=== PATIENT | male | born 1980 | race Caucasian/White ===

== ENCOUNTER 2021-08-30 18:30 | Inpatient (IN) ==
[2021-08-31] MEDS ORDERED: ALBUTEROL/IPRATROPIUM 3 ML NEB RESP TX STA (00:26)
[2021-08-31] MEDS ORDERED: SODIUM CHLORIDE 0.9% 1,000 ML IV STA (00:26)
[2021-08-31] MEDS ORDERED: methylPREDNISolone SOD SUC 125 MG/2 ML VIAL IV STA (00:26)
[2021-08-31 00:58] LABS: Basophils # 0.1 10*3/uL (0.0-0.2); Basophils % 0.3 % (0.0-0.8); Eosinophils # 0.2 10*3/uL (0.0-0.87); Eosinophils % 1.3 % (0.00-10.9); Hematocrit 39.4 VOL% (42.0-52.0); Hemoglobin 12.5 GM/DL (14.0-18.0); Immature Granulocytes Absolute 0.16 #; Lymphocytes # 1.5 10*3/uL (1.4-4.0); Lymphocytes % 9.1 % (21.2-54.2); Mean Corpuscular HGB Conc 31.7 GM/DL (32-36); Mean Corpuscular Volume 92.9 FL (87-102); Mean Platelet Volume 10.5 FL (9.6-12.0); Monocytes # 1.3 10*3/uL (0.11-0.8); Monocytes % 7.5 % (1.7-12.7); Neutrophils % 80.8 % (38.7-73.9); Platelet Count 311 T/CUMM (130-400); Red Blood Count 4.24 MC/CUMM (3.8-5.5); Red Cell Distribution Width 14.9 % (9.3-17.3); White Blood Count 16.6 T/CUMM (4-12)
[2021-08-31 01:19] LABS: INR 0.9; PT Patient Result 10.2 SECS (10.5-12.0)
[2021-08-31] MEDS ORDERED: ACETAMINOPHEN 325 MG TABLET PO PRN (02:22)
[2021-08-31] MEDS ORDERED: DEXTROSE 10% 250 ML BAG IV PRN (02:22)
[2021-08-31] MEDS ORDERED: ONDANSETRON 4 MG/2 ML VIAL IV PRN (02:22)
[2021-08-31] MEDS ORDERED: GLUCAGON 1 MG VIAL IM PRN (02:22)
[2021-08-31] MEDS ORDERED: hydrALAZINE 20 MG/1 ML VIAL IV PRN (02:22)
[2021-08-31 02:53] LABS: Alanine Aminotransferase 49 U/L (16-61); Albumin 3.7 G/DL (3.4-5.0); Aspartate Amino Transferase 50 U/L (0-37); Bilirubin,Total < 0.39 MG/DL (0.20-1.00); Blood Urea Nitrogen 30 MG/DL (7-18); Calcium 8.7 MG/DL (8.5-10.1); Carbon Dioxide 28 MMOL/L (21-32); Chloride 105 MMOL/L (98-107); Estimated Glom Filtration Rate 107 ML/MIN; Glucose 105 MG/DL (74-106); Osmolality,Calculated 284.4 MOS/KG (273-304); Potassium 4.2 MMOL/L (3.5-5.1); Sodium 140 MMOL/L (136-145)
[2021-08-31 02:54] LABS: Alkaline Phosphatase 95 U/L (45-117)
[2021-08-31] MEDS ORDERED: THIAMINE INJ 100 MG, FOLIC ACID INJ 1 MG, MULTIVITAMIN INJ 10 ML in SODIUM CHLORIDE 0.9... IV ONE (03:00)
[2021-08-31 03:41] LABS: Bacteria,Urine Occasional /HPF (Few); Squamous Epithelial Cell,Urine Occasional /HPF (0-10)
[2021-08-31 03:42] LABS: Bilirubin,Urine Negative (Negative); Blood, Urine Negative (Negative); Glucose,Urine (UA) 100 mg/dL (Negative); Ketones,Urine Negative (Negative); Nitrite,Urine Negative (Negative); Protein,Urine Negative (Negative); Urine Appearance Clear (Clear); Urine Color Yellow (Yellow); Urine Urobilinogen 0.2 eU/dL (<2.0); Urine pH 5.5 (4.5-8.0)
[2021-08-31 04:07] LABS: Barbiturates Screen,Urine Negative (Negative); Benzodiazepines Screen,Urine Positive (Negative); Cannabinoid Screen,Urine Negative (Negative); Opiate Screen,Urine Negative (Negative); Phencyclidine Screen,Urine Negative (Negative)
[2021-08-31] MEDS: cefTRIAXone 1,000 MG in SODIUM CHLORIDE 0.9% 100 ML IV SCH (04:11)
[2021-08-31] MEDS ORDERED: KETOROLAC 30 MG/1 ML VIAL IV ONE (04:25)
[2021-08-31] MEDS: AZITHROMYCIN INJ 500 MG in SODIUM CHLORIDE 0.9% 250 ML IV SCH (04:46)
[2021-08-31] MEDS: ALBUTEROL/IPRATROPIUM 3 ML NEB RESP TX SCH ×3 (07:20→19:35)
[2021-08-31] MEDS: POLYETHYLENE GLYCOL POWDER 17 GM PACK PO SCH (09:26)
[2021-08-31] MEDS: DOCUSATE SODIUM 100 MG CAPSULE PO SCH (09:26)
[2021-08-31] MEDS: guaiFENesin/DM ER 600-30 MG TABLET PO SCH (09:27)
[2021-08-31] MEDS: PANTOPRAZOLE 40 MG TABLET PO SCH (09:27)
[2021-08-31] MEDS ORDERED: tiZANidine 4 MG TABLET PO PRN (11:14)
[2021-08-31] MEDS: ATOMOXETINE 60 MG PO SCH (11:16)
[2021-08-31] MEDS ORDERED: GABAPENTIN 300 MG CAPSULE ONE (11:45)
[2021-08-31] MEDS: hydroCHLOROthiazide 25 MG TABLET PO SCH (11:59)
[2021-08-31] MEDS: DULoxetine 30 MG CAPSULE PO SCH (11:59)
[2021-08-31] MEDS: lisinopriL 20 MG TABLET PO SCH (11:59)
[2021-08-31] MEDS: PREGABALIN 50 MG CAPSULE PO SCH (11:59)
[2021-08-31] MEDS: QUEtiapine 100 MG TABLET PO SCH (12:00)
[2021-08-31] MEDS: OLANZapine 5 MG TABLET PO SCH (12:00)
[2021-08-31] MEDS: GABAPENTIN 300 MG CAPSULE PO SCH ×2 (13:00→17:11)
[2021-08-31] MEDS: BUPRENORPHINE SL TAB 2 MG TABLET SL SCH ×2 (13:00→17:11)
[2021-09-01] MEDS: PREGABALIN 50 MG CAPSULE PO SCH ×3 (00:19→20:48)
[2021-09-01] MEDS: BUPRENORPHINE SL TAB 2 MG TABLET SL SCH ×5 (00:19→20:49)
[2021-09-01] MEDS: GABAPENTIN 300 MG CAPSULE PO SCH ×5 (00:19→20:49)
[2021-09-01] MEDS: DOCUSATE SODIUM 100 MG CAPSULE PO SCH ×3 (00:19→23:16)
[2021-09-01] MEDS: guaiFENesin/DM ER 600-30 MG TABLET PO SCH ×3 (00:20→20:49)
[2021-09-01] MEDS: ALBUTEROL/IPRATROPIUM 3 ML NEB RESP TX SCH ×5 (00:30→23:50)
[2021-09-01] MEDS: AZITHROMYCIN INJ 500 MG in SODIUM CHLORIDE 0.9% 250 ML IV SCH (03:37)
[2021-09-01 06:57] LABS: Basophils # 0.1 10*3/uL (0.0-0.2); Basophils % 0.2 % (0.0-0.8); Eosinophils % 0.2 % (0.00-10.9); Hematocrit 36.3 VOL% (42.0-52.0); Hemoglobin 11.4 GM/DL (14.0-18.0); Immature Granulocytes % 1.3 %; Immature Granulocytes Absolute 0.34 #; Lymphocytes # 1.5 10*3/uL (1.4-4.0); Lymphocytes % 5.9 % (21.2-54.2); Mean Corpuscular HGB Conc 31.4 GM/DL (32-36); Mean Corpuscular Volume 93.8 FL (87-102); Mean Platelet Volume 11.1 FL (9.6-12.0); Monocytes # 1.5 10*3/uL (0.11-0.8); Monocytes % 5.9 % (1.7-12.7); Neutrophils % 86.5 % (38.7-73.9); Platelet Count 302 T/CUMM (130-400); Red Blood Count 3.87 MC/CUMM (3.8-5.5); Red Cell Distribution Width 15.6 % (9.3-17.3); White Blood Count 25.9 T/CUMM (4-12)
[2021-09-01 07:17] LABS: Lymphocytes 5 % (20-55); Platelet Estimate Adequate; Total Cells Counted 100
[2021-09-01 07:21] LABS: Calcium 9.2 MG/DL (8.5-10.1); Osmolality,Calculated 283.5 MOS/KG (273-304); Potassium 4.5 MMOL/L (3.5-5.1)
[2021-09-01] MEDS: cefTRIAXone 1,000 MG in SODIUM CHLORIDE 0.9% 100 ML IV SCH (08:30)
[2021-09-01] MEDS: ATOMOXETINE 60 MG PO SCH (08:34)
[2021-09-01] MEDS: DULoxetine 30 MG CAPSULE PO SCH (09:10)
[2021-09-01] MEDS: hydroCHLOROthiazide 25 MG TABLET PO SCH (09:10)
[2021-09-01] MEDS: lisinopriL 20 MG TABLET PO SCH (09:11)
[2021-09-01] MEDS: OLANZapine 5 MG TABLET PO SCH (09:11)
[2021-09-01] MEDS: PANTOPRAZOLE 40 MG TABLET PO SCH (09:11)
[2021-09-01] MEDS: QUEtiapine 100 MG TABLET PO SCH (09:11)
[2021-09-01] MEDS: POLYETHYLENE GLYCOL POWDER 17 GM PACK PO SCH (09:12)
[2021-09-01] MEDS: VANCOMYCIN INJ 2,000 MG in SODIUM CHLORIDE 0.9% 500 ML IV SCH (10:58)
[2021-09-01] MEDS ORDERED: NICOTINE 21 MG/24 HR PATCH TRANSDERM SCH (11:30)
[2021-09-01] MEDS ORDERED: ENOXAPARIN 40 MG/0.4 ML SYRINGE SUBCUT SCH (12:00)
[2021-09-01] MEDS: KETOROLAC 15 MG/1 ML VIAL IV PRN ×2 (12:28→18:09)
[2021-09-01] MEDS ORDERED: ALBUTEROL/IPRATROPIUM 3 ML NEB RESP TX PRN (16:54)
[2021-09-01] MEDS: PIPERACILLIN/TAZOBACTAM 3,375 MG in SODIUM CHLORIDE 0.9% 100 ML IV SCH (18:28)
[2021-09-02] MEDS: PIPERACILLIN/TAZOBACTAM 3,375 MG in SODIUM CHLORIDE 0.9% 100 ML IV SCH (00:15)
[2021-09-02 03:59] VITALS: BP 189/91
[2021-09-02] MEDS: AZITHROMYCIN INJ 500 MG in SODIUM CHLORIDE 0.9% 250 ML IV SCH (04:05)
[2021-09-02] MEDS: VANCOMYCIN INJ 2,000 MG in SODIUM CHLORIDE 0.9% 500 ML IV SCH (05:07)
[2021-09-02 05:17] LABS: Basophils # 0.1 10*3/uL (0.0-0.2); Basophils % 0.7 % (0.0-0.8); Eosinophils # 0.4 10*3/uL (0.0-0.87); Eosinophils % 2.7 % (0.00-10.9); Hematocrit 39.1 VOL% (42.0-52.0); Hemoglobin 11.8 GM/DL (14.0-18.0); Immature Granulocytes % 2.8 %; Immature Granulocytes Absolute 0.38 #; Lymphocytes % 14.8 % (21.2-54.2); Mean Corpuscular HGB Conc 30.2 GM/DL (32-36); Mean Corpuscular Volume 96.1 FL (87-102); Mean Platelet Volume 10.8 FL (9.6-12.0); Monocytes # 1.4 10*3/uL (0.11-0.8); Monocytes % 10.2 % (1.7-12.7); NRBC # 0.02 10*3/uL; Neutrophils % 68.8 % (38.7-73.9); Platelet Count 289 T/CUMM (130-400); Red Blood Count 4.07 MC/CUMM (3.8-5.5); Red Cell Distribution Width 15.7 % (9.3-17.3); White Blood Count 13.5 T/CUMM (4-12)
[2021-09-02 05:41] LABS: Calcium 8.7 MG/DL (8.5-10.1); Osmolality,Calculated 279.5 MOS/KG (273-304); Potassium 4.5 MMOL/L (3.5-5.1)
== END 2021-09-02 06:40 | disposition left against medical advice (07) | DRG 194 ==
LOC: N.ED 18:30 → N.EDINP 18:30 → SUATTDRO 08-31 02:22 → N.5E 08-31 13:58
PROVIDERS: ADMIT Hospitalist; ATTEND Hospitalist

== ENCOUNTER 2021-09-02 07:23 | Inpatient (IN) ==
[2021-09-02] MEDS ORDERED: LORazepam 2 MG/1 ML VIAL IV STA (07:48)
[2021-09-02] MEDS ORDERED: SODIUM CHLORIDE 0.9% 500 ML IV STA (07:48)
[2021-09-02] MEDS ORDERED: ONDANSETRON 4 MG/2 ML VIAL IV PRN (09:27)
[2021-09-02] MEDS ORDERED: DOCUSATE SODIUM 100 MG CAPSULE PO PRN (09:27)
[2021-09-02] MEDS ORDERED: GLUCAGON 1 MG VIAL IM PRN ×2 (09:27→09:32)
[2021-09-02] MEDS ORDERED: ALBUTEROL 2.5 MG/3 ML NEB RESP TX PRN (09:27)
[2021-09-02] MEDS ORDERED: ACETAMINOPHEN 325 MG TABLET PO PRN (09:27)
[2021-09-02] MEDS ORDERED: hydrALAZINE 20 MG/1 ML VIAL IV PRN (09:27)
[2021-09-02] MEDS ORDERED: DEXTROSE 50% 25 GM/50 ML VIAL IV PRN (09:32)
[2021-09-02] MEDS ORDERED: PIPERACILLIN/TAZOBACTAM 3,375 MG in SODIUM CHLORIDE 0.9% 100 ML IV STA (09:35)
[2021-09-02] MEDS ORDERED: LORazepam 2 MG/1 ML VIAL IV PRN (09:36)
[2021-09-02] MEDS ORDERED: LOSARTAN 25 MG TABLET PO SCH (10:00)
[2021-09-02] MEDS ORDERED: DEXTROSE 10% 250 ML BAG IV PRN (10:06)
[2021-09-02] MEDS ORDERED: FUROSEMIDE 40 MG/4 ML VIAL IV ONE (10:30)
[2021-09-02 10:38] LABS: Barbiturates Screen,Urine Negative (Negative); Benzodiazepines Screen,Urine Positive (Negative); Cannabinoid Screen,Urine Positive (Negative); Opiate Screen,Urine Negative (Negative); Phencyclidine Screen,Urine Negative (Negative)
[2021-09-02] MEDS: ENOXAPARIN 40 MG/0.4 ML SYRINGE SUBCUT SCH (11:13)
[2021-09-02] MEDS: QUEtiapine 100 MG TABLET PO SCH (11:13)
[2021-09-02] MEDS: hydroCHLOROthiazide 25 MG TABLET PO SCH (11:15)
[2021-09-02] MEDS: OLANZapine 5 MG TABLET PO SCH (11:21)
[2021-09-02] MEDS: DOXYCYCLINE HYCLATE 100 MG CAPSULE PO SCH ×2 (11:23→22:00)
[2021-09-02] MEDS: PIPERACILLIN/TAZOBACTAM 3,375 MG in SODIUM CHLORIDE 0.9% 100 ML IV SCH ×2 (11:57→18:01)
[2021-09-02] MEDS: INSULIN LISPRO 100 UNIT/ML SUBCUT SCH ×3 (11:57→22:01)
[2021-09-02] MEDS: lisinopriL 20 MG TABLET PO SCH (13:18)
[2021-09-02] MEDS: chlordiazePOXIDE 25 MG CAPSULE PO SCH ×3 (13:18→22:00)
[2021-09-02] MEDS: BUPRENORPHINE SL TAB 2 MG TABLET SL SCH ×3 (13:19→22:00)
[2021-09-02] MEDS: GABAPENTIN 600 MG TABLET PO SCH ×3 (13:19→22:00)
[2021-09-02 17:25] LABS: Arterial Base Excess iSTAT 5 MMOL/L (-2.5-2.5); Arterial Bicarbonate iSTAT 31.3 MMOL/L (20-26); Arterial O2 Saturation iSTAT 89 % (95-100); Arterial PCO2 iSTAT 55 MM HG (35-48); Arterial PO2 iSTAT 60 MM HG (80-95); Arterial Total CO2 iSTAT 33 MMO/L (23-27); Arterial pH iSTAT 7.364 (7.35-7.45)
[2021-09-02] MEDS: LORazepam 1 MG TABLET PO PRN ×2 (18:03→22:01)
[2021-09-03] MEDS: PIPERACILLIN/TAZOBACTAM 3,375 MG in SODIUM CHLORIDE 0.9% 100 ML IV SCH (01:42)
[2021-09-03 05:33] LABS: Basophils # 0.1 10*3/uL (0.0-0.2); Basophils % 0.8 % (0.0-0.8); Eosinophils # 0.3 10*3/uL (0.0-0.87); Eosinophils % 2.4 % (0.00-10.9); Hematocrit 39.9 VOL% (42.0-52.0); Hemoglobin 12.9 GM/DL (14.0-18.0); Immature Granulocytes % 2.6 %; Immature Granulocytes Absolute 0.35 #; Lymphocytes # 1.5 10*3/uL (1.4-4.0); Lymphocytes % 10.8 % (21.2-54.2); Mean Corpuscular HGB Conc 32.3 GM/DL (32-36); Mean Corpuscular Volume 90.1 FL (87-102); Mean Platelet Volume 10.1 FL (9.6-12.0); Monocytes # 1.3 10*3/uL (0.11-0.8); Monocytes % 9.9 % (1.7-12.7); Neutrophils % 73.5 % (38.7-73.9); Platelet Count 307 T/CUMM (130-400); Red Blood Count 4.43 MC/CUMM (3.8-5.5); Red Cell Distribution Width 14.3 % (9.3-17.3); White Blood Count 13.6 T/CUMM (4-12)
[2021-09-03 05:55] LABS: Albumin 3.2 G/DL (3.4-5.0); Bilirubin,Total 0.5 MG/DL (0.20-1.00); Calcium 9.4 MG/DL (8.5-10.1); Osmolality,Calculated 273.7 MOS/KG (273-304); Potassium 3.6 MMOL/L (3.5-5.1); Total Protein 7.6 G/DL (6.4-8.2)
[2021-09-03] MEDS: INSULIN LISPRO 100 UNIT/ML SUBCUT SCH ×4 (08:24→20:22)
[2021-09-03] MEDS: QUEtiapine 100 MG TABLET PO SCH (08:25)
[2021-09-03] MEDS: chlordiazePOXIDE 25 MG CAPSULE PO SCH ×4 (08:26→20:42)
[2021-09-03] MEDS: lisinopriL 20 MG TABLET PO SCH (08:26)
[2021-09-03] MEDS: DOXYCYCLINE HYCLATE 100 MG CAPSULE PO SCH (08:26)
[2021-09-03] MEDS: hydroCHLOROthiazide 25 MG TABLET PO SCH (08:27)
[2021-09-03] MEDS: GABAPENTIN 600 MG TABLET PO SCH ×4 (08:27→20:42)
[2021-09-03] MEDS: OLANZapine 5 MG TABLET PO SCH (08:27)
[2021-09-03] MEDS: BUPRENORPHINE SL TAB 2 MG TABLET SL SCH ×4 (08:33→20:42)
[2021-09-03] MEDS ORDERED: LEVOFLOXACIN 750 MG TABLET PO SCH (09:00)
[2021-09-03] MEDS ORDERED: DULoxetine 30 MG CAPSULE PO SCH (09:00)
[2021-09-03] MEDS ORDERED: THIAMINE 100 MG TABLET PO SCH (10:00)
[2021-09-03] MEDS ORDERED: FOLIC ACID 1 MG TABLET PO SCH (10:00)
[2021-09-03] MEDS: ENOXAPARIN 40 MG/0.4 ML SYRINGE SUBCUT SCH (10:16)
[2021-09-03 12:19] VITALS: BP 146/101
[2021-09-03] MEDS: LORazepam 1 MG TABLET PO PRN ×2 (12:45→20:43)
[2021-09-03] MEDS ORDERED: PREGABALIN 50 MG CAPSULE PO SCH (21:00)
== END 2021-09-04 08:48 | disposition left against medical advice (07) | DRG 193 ==
LOC: EDBD → EDUNIT# → N.ED 07:23 → SUATTDRO 09:27 → N.EDINP 09:27 → N.ICU 10:59
PROVIDERS: ADMIT Internal Medicine; ATTEND Internal Medicine